=== PATIENT | male | born 1985 | race Caucasian/White ===

== ENCOUNTER 2018-10-11 06:38 | Outpatient (CLI) | payer BC ==
--- NOTE | 2018-10-11 07:46 | ULT ---
EXAM: US Hepatic Doppler PROVIDED CLINICAL HISTORY: Gallbladder polyp, meningioma. History of elevated liver function tests. Gilbert's syndrome. COMPARISON: 03/25/2016 FINDINGS: A 0.7 cm echogenic mass is again seen in the right hepatic lobe unchanged in size compared to the rachel or study and likely represents a hemangioma. The liver otherwise demonstrates a normal sonographic appearance. A small 0.3 cm echogenic focus along the anterior gallbladder wall is also again seen and likely repr esents a small gallbladder polyp. No gallbladder calculus is seen. The common duct measures 0.3 cm in diameter which is within normal limits. The abdominal aorta, visualized portions of the IVC, visualized portions of the pancreas, and spleen demonstrate a normal sonographic appearance. Hepatic Doppler evaluation with spectral analysis and color flow evaluation demonstrates normal direc tional flow within the hepatic, portal, and splenic veins. Arterial waveforms are seen within the hepatic and splenic arteries. IMPRESSION: 1. Stable echogenic mass right hepatic lobe likely attributable to a hemangioma. 2. Stable small gallbladder polyp. No gallbladder calculus is seen. 3. Hepatopetal flow.
== END 2018-10-11 06:39 | disposition home or self-care (01) ==
LOC: BICULT 06:38
PROVIDERS: ATTEND Family Medicine
DX: K82.4 Cholesterolosis of gallbladder (principal); D18.03 Hemangioma of intra-abdominal structures; R16.0 Hepatomegaly, not elsewhere classified
CPT/HCPCS: 76705